=== PATIENT | female | born 1940 | race Caucasian/White ===

== ENCOUNTER 2017-01-08 15:34 | Emergency (ER) | payer MEDICARE, MEDICAID ==
--- NOTE | 2017-01-08 17:42 | RAD ---
INDICATION: Left shoulder injury. TECHNIQUE: 4 views of the left shoulder were obtained. FINDINGS: The bones appear osteopenic. There is a transverse fracture of the surgical neck of the humerus. The fracture fragments are slightly impacted. Joint spaces appear maintained. IMPRESSION: THERE IS A MILDLY IMPACTED FRACTURE OF THE SURGICAL NECK OF THE HUMERUS.
--- NOTE | 2017-01-08 17:43 | RAD ---
INDICATION: Left humerus injury. TECHNIQUE: 2 views of the left humerus were obtained. FINDINGS: Again note is made of a transverse slightly impacted fracture of the surgical neck of the humerus. No additional fracture is seen. IMPRESSION: FRACTURE OF THE SURGICAL NECK OF THE HUMERUS. NO ADDITIONAL FRACTURE IS SEEN.
[2017-01-08 17:49] VITALS: BP 139/54
--- NOTE | 2017-01-08 18:01 | ED ---
Upper Extremity Pain - HPI Summary HPI Summary: Patient presents from long term s/p fall with xrays showing displaced fracture of the proximal humerus after falling onto the arm yesterday. She had xrays taken of the entire right upper extremity which reveals only right mildly displaced fx. She is in no pain at rest, but painful with movement. She has dementia at baseline and family is with her for support. Denies fever, chills, sweats. Yesterday, daughter states they had found a lump in the left axilla, but nothing further was evaluated. - History of Current Complaint Chief Complaint: EDShouldBonny Stated Complaint: LT SHOULDER INJURY Time Seen by Provider: 01/08/17 15:51 Hx Obtained From: Patient Mechanism Of Injury: Unknown Onset/Duration: Started Hours Ago Timing: Constant Severity Initially: Moderate Severity Currently: Moderate Character: Aching Aggravating Factor(s): Movement, Lifting, Flexion, Extension Alleviating Factor(s): Rest, Ice - Risk Factors Non-Orthopedic Risk Factor: Negative DVT Risk Factors: Negative Septic Arthritis Risk Factor: Negative Compartment Syndrome Risk Factors: Pain - Allergies/Home Medications Allergies/Adverse Reactions: Allergies Allergy/AdvReac Type Severity Reaction Status Date / Time No Known Allergies Allergy Verified 10/01/15 11:12 PMH/Surg Hx/FS Hx/Imm Hx Previously Healthy: No - see below Endocrine/Hematology History: Reports: Hx Diabetes - TYPE 2 Denies: Hx Anticoagulant Therapy, Hx Thyroid Disease Cardiovascular History: Reports: Hx Hypercholesterolemia, Hx Hypertension - CONTROL WITH MEDS, Other Cardiovascular Problems/Disorders - HYPERLIPIDEMIA CONTROL WITH MED Denies: Hx Pacemaker/ICD Respiratory History: Reports: Other Respiratory Problems/Disorders - PNEUMONIA 04/2015 Denies: Hx Asthma, Hx Chronic Obstructive Pulmonary Disease (COPD) GI History: Reports: Hx Gastroesophageal Reflux Disease, Hx Hiatal Hernia - LARGE PARAESPHOGEAL HIATAL HERNIA / CONTROL WITH MEDS, Other GI Disorders - HX OF DIVERTICULOSIS, HX OF GALLSTONES, HX OF ESOPHOGEAL STRICTURE History: Reports: Other Problems/Disorders - DAUGHTER THINKS THERE IS A POSSIBLILITY OF BLADDER STONES Denies: Hx Renal Disease Musculoskeletal History: Reports: Other Musculoskeletal History - OSTEOPOROSIS Denies: Hx Rheumatoid Arthritis Sensory History: Reports: Hx Contacts or Glasses - GLASSES Denies: Hx Hearing Aid, Hx Hearing Problem Opthamlomology History: Reports: Hx Contacts or Glasses - GLASSES Neurological History: Reports: Hx Dementia, Other Neuro Impairments/Disorders - DEMENTIA, HARD TO COMMUNICATE Denies: Hx Seizures Psychiatric History: Denies: Hx Panic Disorder, Hx Substance Abuse - Cancer History Cancer Type, Location and Year: LT BREAST Hx Chemotherapy: No Hx Radiation Therapy: Yes - Surgical History Surgery Procedure, Year, and Place: 2008 LEFT BREAST L[place]OMY, [place]. 1982 [facility] X2[place] DILATION ANCE CURE[place]AGE FOR FIBROIDS[place]. ESOPHAGUS DILATION X 3, [place] Hx Anesthesia Reactions: Yes - - DAUGHTER DOES NOT KNOW DETAILS - REHOSPITALIZED - Immunization History Date of Tetanus Vaccine: 2007 Date of Influenza Vaccine: 2011 Hx Pertussis Vaccination: No Immunizations Up to Date: Unable to Obtain/Confirm Infectious Disease History: No Infectious Disease History: Denies: Hx Hepatitis, Hx Human Immunodeficiency Virus (HIV), Traveled Outside the in Last 30 Days - Family History Known Family History: Positive: None - reviewed & noncontributory, Other - breast cancer - Social History Occupation: Retired Lives: At [facility] Alcohol Use: None Hx Substance Use: No Substance Use Type: Reports: None Hx Tobacco Use: No Smoking Status (MU): Never Smoked Tobacco Review of Systems Constitutional: Negative Eyes: Negative Cardiovascular: Negative Respiratory: Negative Positive: no symptoms reported, see HPI Positive: Arthralgia, Myalgia - left humeral pain Skin: Negative Neurological: Negative Psychological: Normal All Other Systems Reviewed And Are Negative: Yes Physical Exam Triage Information Reviewed: Yes Vital Signs On Initial Exam: Initial Vitals Temp Pulse Resp BP Pulse Ox 99.1 F 74 16 131/61 94 01/08/17 15:39 01/08/17 15:39 01/08/17 15:39 01/08/17 15:39 01/08/17 15:39 Vital Signs Reviewed: Yes Completion Of Physical Exam Limited Due To: Dementia Appearance: Positive: Well-Nourished Skin: Positive: Warm, Skin Color Reflects Adequate Perfusion Respiratory/Lung Sounds: Positive: Clear to Auscultation, Breath Sounds Present Cardiovascular: Positive: Normal, RRR Musculoskeletal: Positive: Limited @ - left ROM, Pain @ - left upper extremity Neurological: Positive: Sensory/Motor Intact, Alert, Oriented to Person Place, Time, Speech Normal Psychiatric: Positive: Normal AVPU Assessment: Alert Diagnostics - Vital Signs Vital Signs Temp Pulse Resp BP Pulse Ox 01/08/17 17:00 71 139/54 93 01/08/17 16:30 77 126/80 96 01/08/17 16:00 75 136/58 94 01/08/17 15:41 78 95 01/08/17 15:40 131/61 01/08/17 15:39 99.1 F 74 16 131/61 94 - Laboratory Lab Statement: Any lab studies that have been ordered have been reviewed, and results considered in the medical decision making process. Course/Dx - Course Course Of Treatment: Patient is placed in sling. Given hydrocodone and sent back home to [place] with follow up with Dr. Bautista. FINDINGS: Again note is made of a transverse slightly impacted fracture of the surgical. neck of the humerus. No additional fracture is seen. IMPRESSION: FRACTURE OF THE SURGICAL NECK OF THE HUMERUS. NO ADDITIONAL FRACTURE IS SEEN. - Diagnoses Differential Diagnosis/HQI/PQRI: Positive: Fracture (Closed), Strain, Sprain Provider Diagnoses: Proximal humeral fracture - Physician Notifications Discussed Care of Patient With: Randi Bautista - dicussed the need for follow up in office this week. Instructed by Provider To: Have Pt Call For Appt. Admit/Transition Orders Completed By ED Provider: No Discharge - Discharge Plan Condition: Stable Disposition: HOME Patient Education Materials: Proximal Humerus Fracture (ED) Referrals: Cari Fernando MD [Primary Care Provider] - Randi Bautista MD [Medical Doctor] - Additional Instructions: Pain medication as needed through [facility]. Follow up with Dr. Bautista in office. Call tomorrow morning for appt
[2017-01-08] MEDS ORDERED: HYDROcodone/ACETAMIN 5-325 MG* 1 TAB PO ONE (18:09)
== END 2017-01-08 19:39 | disposition home or self-care (01) ==
LOC: ED 15:34
DX: S42.202A Unspecified fracture of upper end of left humerus, initial encounter for closed fracture (principal); W19.XXXA Unspecified fall, initial encounter; Y93.9 Activity, unspecified
CPT/HCPCS: 99283

== ENCOUNTER 2017-01-19 22:05 | Emergency (ER) | payer MEDICARE, MEDICAID ==
--- NOTE | 2017-01-19 22:55 | ED ---
Tia Perez Alfonso, scribed for Lan Montiel MD on 01/19/17 at 2227 . GI/ HPI - HPI Summary HPI Summary: This patient is a 76 year old F BIBA from [facility] to [facility] accompanied by daughter with a chief complaint of hematemesis since earlier today. The CC is described as bring red blood possibly two cups per EMS. Pt rates the pain 0/ 10 in severity. Symptoms aggravated and alleviated by nothing. Pt is on 2L nebulizer at this time. DNR. PMHx of breast cancer. - History of Current Complaint Chief Complaint: EDGIBleed Time Seen by Provider: 01/19/17 22:19 Stated Complaint: VOMITING BLOOD Hx Obtained From: Patient, Family/Professor Of Literacy - Daughter, EMS Onset/Duration: Started Hours Ago - Earlier today, Still Present Timing: Constant Severity: Moderate Current Severity: Moderate Pain Intensity: 0 Associated Signs and Symptoms: Positive: Hematemesis Aggravating Factor(s): Nothing Alleviating Factor(s): Nothing - Additional Pertinent History Primary Care Physician: CHE[facility] - Allergy/Home Medications Allergies/Adverse Reactions: Allergies Allergy/AdvReac Type Severity Reaction Status Date / Time No Known Allergies Allergy Verified 10/01/15 11:12 PMH/Surg Hx/FS Hx/Imm Hx Endocrine/Hematology History: Reports: Hx Diabetes - TYPE 2 Denies: Hx Anticoagulant Therapy, Hx Thyroid Disease Cardiovascular History: Reports: Hx Hypercholesterolemia, Hx Hypertension - CONTROL WITH MEDS, Other Cardiovascular Problems/Disorders - HYPERLIPIDEMIA CONTROL WITH MED Denies: Hx Pacemaker/ICD Respiratory History: Reports: Other Respiratory Problems/Disorders - PNEUMONIA 04/2015 Denies: Hx Asthma, Hx Chronic Obstructive Pulmonary Disease (COPD) GI History: Reports: Hx Gastroesophageal Reflux Disease, Hx Hiatal Hernia - LARGE PARAESPHOGEAL HIATAL HERNIA / CONTROL WITH MEDS, Other GI Disorders - HX OF DIVERTICULOSIS, HX OF GALLSTONES, HX OF ESOPHOGEAL STRICTURE History: Reports: Other Problems/Disorders - DAUGHTER THINKS THERE IS A POSSIBLILITY OF BLADDER STONES Denies: Hx Renal Disease Musculoskeletal History: Reports: Other Musculoskeletal History - OSTEOPOROSIS Denies: Hx Rheumatoid Arthritis Sensory History: Reports: Hx Contacts or Glasses - GLASSES Denies: Hx Hearing Aid, Hx Hearing Problem Opthamlomology History: Reports: Hx Contacts or Glasses - GLASSES Neurological History: Reports: Hx Dementia, Other Neuro Impairments/Disorders - DEMENTIA, HARD TO COMMUNICATE Denies: Hx Seizures Psychiatric History: Denies: Hx Panic Disorder, Hx Substance Abuse - Cancer History Cancer Type, Location and Year: LT BREAST Hx Chemotherapy: No Hx Radiation Therapy: Yes - Surgical History Surgery Procedure, Year, and Place: 2008 LEFT BREAST LUMPECTOMY, [place]. 1982 C SECTIONS, [facility]. [facility], [facility]. DILATION ANCE [facility], [facility]. ESOPHAGUS DILATION X 3, [place] Hx Anesthesia Reactions: Yes - - DAUGHTER DOES NOT KNOW DETAILS - REHOSPITALIZED - Immunization History Date of Tetanus Vaccine: 2007 Date of Influenza Vaccine: 2011 Infectious Disease History: No Infectious Disease History: Denies: Hx Hepatitis, Hx Human Immunodeficiency Virus (HIV), Traveled Outside the [place] in Last 30 Days - Family History Known Family History: Positive: Other - breast cancer - Social History Alcohol Use: None Hx Substance Use: No Substance Use Type: Reports: None Hx Tobacco Use: No Smoking Status (MU): Never Smoked Tobacco Review of Systems Negative: Fever Positive: Vomiting - hematemesis All Other Systems Reviewed And Are Negative: Yes Physical Exam Triage Information Reviewed: Yes Vital Signs On Initial Exam: Initial Vitals Temp Pulse Resp BP Pulse Ox 96.5 F 110 18 114/69 95 01/19/17 22:14 01/19/17 22:14 01/19/17 22:14 01/19/17 22:14 01/19/17 22:14 Vital Signs Reviewed: Yes Appearance: Positive: No Pain Distress, Ill-Appearing Skin: Positive: Warm, Dry Head/Face: Positive: Normal Head/Face Inspection Eyes: Positive: ELISE ENT: Positive: Hearing grossly normal Neck: Positive: Supple Respiratory/Lung Sounds: Positive: Breath Sounds Present Cardiovascular: Positive: RRR Abdomen Description: Positive: Soft, Distended Bowel Sounds: Positive: Hypoactive Musculoskeletal: Positive: Strength/ROM Intact - Martha Coma Scale Coma Scale Total: 15 Diagnostics - Vital Signs Vital Signs Temp Pulse Resp BP Pulse Ox 01/19/17 22:14 96.5 F 110 18 114/69 95 - Laboratory Lab Statement: Any lab studies that have been ordered have been reviewed, and results considered in the medical decision making process. Re-Evaluation - Re-Evaluation First Eval Comment: riya requesting pt retuen blanca snf, rerquests no intervention, pt is dnr/dni comfort measures GIGU Course/Dx - Course Assessment/Plan: 76 year old F [facility]IB[facility] from [facility] to [facility] accompanied by daughter with a chief complaint of hematemesis since earlier today. The CC is described as bring red blood possibly two cups per EMS. Patient will be discharged with follow up from PCP. Pt and daughter are agreeable with this plan. - Diagnoses Provider Diagnoses: GI bleed Discharge - Discharge Plan Condition: Guarded Disposition: [facility]IOR [facility]ARE FACILITY Patient Education Materials: Gastrointestinal Bleeding (ED) Referrals: Cari Fernando MD [Primary Care Provider] - 3 Days The documentation as recorded by the Tia cordon Alfonso accurately reflects the service I personally performed and the decisions made by me, Lan Montiel MD.
[2017-01-20] MEDS ORDERED: Morphine INJ* 4 MG/ML 1 ML SYRINGE SUBCUT ONE
[2017-01-20 01:03] VITALS: BP 106/55
== END 2017-01-20 01:25 ==
LOC: ED 22:05
DX: K92.2 Gastrointestinal hemorrhage, unspecified (principal); K92.0 Hematemesis
CPT/HCPCS: 96374; 99282; J2270